=== PATIENT | female | born 1975 ===

== ENCOUNTER → 2017-11-17 | Outpatient (CLI) | payer OTHER ==
[~2017-11-17] MED LIST: GADAVIST IV PRN
--- NOTE | 2017-11-17 15:14 | DIAGNOSTIC IMAGING REPORT ---
BRAIN COMBO FOR PITUITARY CLINICAL HISTORY: ELEVATED PROLACTIN LEVEL COMPARISON STUDY: No previous studies for comparison. TECHNIQUE: Utilizing a 1.5 Roseanne magnet and dedicated coil, multiplanar, multiecho imaging of the brain was performed with thin cut pre and postcontrast imaging through the pituitary gland. Injection of 8.5 cc of Gadavist IV was uneventful. Post contrast imaging was performed utilizing dynamic enhancement. FINDINGS: There are no foci of restricted diffusion. No acute intracranial hemorrhage, midline shift or mass effect is present. Brain volume is normal. Ventricular system is normal. Basilar cisterns are patent. There are no extra-axial collections. Flow-voids for the major intracranial vessels are present. There is no intracranial mass or pathologic enhancement. Calvarial signal is maintained. Orbits are unremarkable. Size of the pituitary gland is normal. Infundibulum is midline. Optic chiasm is normal. No pituitary lesion is identified. IMPRESSION: Normal MRI of the brain and pituitary gland. No pituitary lesion identified. Electronically signed by: Uri Eric M.D. 11/17/2017 3:13 PM Dictated Date/Time: 11/17/2017 3:02 PM
== END | disposition home or self-care (01) ==
LOC: C.MRI 13:30
PROVIDERS: ATTEND Family Medicine
DX: E22.9 Hyperfunction of pituitary gland, unspecified (principal); R79.89 Other specified abnormal findings of blood chemistry